=== PATIENT | female | born 1965 | race Caucasian/White ===

== ENCOUNTER → 2019-07-08 08:44 | Outpatient (CLI) | payer BC, SELFPAY ==
--- NOTE | 2019-07-08 08:48 | RAD_ITS ---
STUDY: X-RAY - CERVICAL SPINE REASON FOR EXAM: Female, 53 years old. bilateral arm, shoulder numbness, no trauma TECHNIQUE: 3 view(s) of the cervical spine were obtained. COMPARISON: None FINDINGS: Normal anterior atlantoaxial articulation. Normal odontoid process. Normal cervical lordosis. Normal vertebral bodies and endplates. Normal disc space heights. Normal visualized intervertebral neuroforamina. The soft tissue structures are unremarkable. RAD/Cerv Spine 2 or 3 Views IMPRESSION: Normal x-ray examination of the visualized cervical spine. Electronically Signed: Albert Stein MD at 9:03 EST Tel , Service support ,
== END ==
PROVIDERS: Family Provider Family Medicine; Referring Provider Family Medicine; Visit Provider Family Medicine
DX: R20.0 Anesthesia of skin (principal); R20.2 Paresthesia of skin; G56.02 Carpal tunnel syndrome, left upper limb
CPT/HCPCS: 72040

== ENCOUNTER → 2019-08-31 08:20 | Outpatient (CLI) | payer BC, SELFPAY ==
[2017-09-26 10:23] VITALS: BMI 26.9
[2019-08-31 10:21] LABS: Anion Gap 6 (5-15); BUN 13 mg/dL (7-18); BUN/Creat Ratio 17.5 RATIO (10-20); Calcium,Total 9.3 mg/dL (8.5-10.1); Chloride 109 mmol/L (98-107); Cholesterol 205 mg/dL (200); Creatinine, Serum 0.74 mg/dL (0.55-1.02); EST Glomerular Filtration Rate 87 mL/min (>60); Est Glom Filt Rate - Afr Amer 105 mL/min (>60); Glucose 95 mg/dL (74-106); High Density Lipoprotein 71 mg/dL; Potassium 4.2 mmol/L (3.5-5.1); Sodium Level 142 mmol/L (136-145); Triglycerides 40 mg/dL; Very Low Density Lipoprotein 8 mg/dL (5-40)
== END ==
PROVIDERS: PCP Family Medicine; Referring Provider Family Medicine; Visit Provider Family Medicine
DX: Z13.1 Encounter for screening for diabetes mellitus (principal); Z13.220 Encounter for screening for lipoid disorders
CPT/HCPCS: 36415; 80048; 80061

== ENCOUNTER 2019-09-07 07:00 | Outpatient (RCR) | payer BC, SELFPAY ==
--- NOTE | 2019-07-20 08:30 | HP.OTEVAL_ITS ---
Patient's Visit Information VERONIKA JIN is a 53 year old F, referred to Occupational Therapy by Octavio Coleman MD, with a diagnosis of BUE Numbness and tingling; L carpal tunnel. Date of Evaluation: 07/20/19 Occupational Therapist: Ann Quinn, OTR/L - Subjective Subjective: Arrived and noted that she works for [employer] and does a lot of typing and writing. She noted that she recently bought property with and she noted they were completing more landscape-like activities in April when s he had flare up and that has not resided. She noted symptoms started around middle of April 2019 and have continued to present. She is L hand dominant and symptoms are on left UE. She noted cervical x-ray came back ' normal'. - ADLs Dressing: Bra, Button shirt, Pants, Socks, Shoes, Necklace, Earrings Fasteners: Tie shoes, Buttons, Zippers, Snaps, [place] Eating: Bring food to mouth, Use silverware, Cut food, Butter bread, Drink from glass Bathing: Handle washcloth & soap, Wash hair Toileting: Manage clothing Grooming: mechanical engineering officer, Curling iron, Comb hair, Trim alberto Kitchen: Chop with knife, Peel fruits & vegetables, Open jars, Open bottle caps, Ziplock bags, Lift gallon of milk, Pour from pitcher, Lift saucepan, Take dish out of oven, Load/unload cytotechnologist supervisor Household: Vacuum, Sweep/mop, Laundry Miscellaneous: Unlock front door, Start car, Open medication bottle, Handle money (change), Take things out of wallet, Write, Use power tools, Use computer keyboard, Do crafts, Sew, Jonas/knit/needlework, Drive Comments: Pt. is L hand dominant. SHe noted that she has alpacas and noted increased difficulty with barn chores. - Pain L UE 5 Pain Intensity Range: 3, 9 - Objective Objective/Observation: Some guarding behaviors of L UE consistent with pain; decreased strength observed for L dominant hand. Positive speeds test for bicep tendon involvement but median nerve involvement seems to be consistent with some thoracic outlet as coming from shoulder down and cervical spine x-ray is normal (per patient report) and rotator cuff is intact. She does not have additional symptoms with carpal tunnel tests of Phalen?s or tinels. Sensation loss in hand most present in L MF and thumb which is consistent with median nerve distribution. Concerns: Please send OT order for treatment of LUE symptoms. Thank you! - ROM Shoulder: WFL Elbow: WFL Forearm: WFL Wrist: WFL CMC: WFL MP: WFL IP: WFL Radial Abduction: WFL Palmar Abduction: WFL MP: WFL PIP: WFL DIP: WFL - Strength Shoulder: R 5/5, L 4/5 Elbow: R 5/5, L 4/5 Forearm: WFL Wrist: WFL Emergency Department Physician: flexed R 58, L 30; ext R 62, L 48 Lateral Pinch: R 14, L 10 Tripod Pinch: R 16, L 4 Tip-to-Tip Pinch: R 10, L 4 Strength Comments: Some pain with resistance on L UE. - Sensation Thumb: R 3.84, L 4.74 Index: R 3.61, L 3.84 Middle: R 3.22, L 4.31 Ring: R 3.22, L 3.22 Little: R 2.83, L 2.83 Kinesthesia: Normal - Right, Normal - Left Proprioception: Normal - Right, Normal - Left Sensation Comments: Increased snory deficits on left middle finger and thumb. - Special Tests Phalen's (Carpal Tunnel): no increase in symptoms Tinel's: no increase in symptoms Median Nerve Compression Test: no increase in symptoms Lift Off Test - Subscapular Tear: Negative Drops Sign - IS Test: Negative Empty Can - SS: Negative Neer - Impingement: Negative Mackenzie Tom - Impingement: Negative Biceps Load Test: Negative Speeds Test - Labrum/Biceps: Positive O'Briens - SLAP/A-C: Positive - Quick DASH-Disab of Arm,Shoulder& Hand Quick DASH Score: 60.0000 - Goals Goal:: Veronika to increased L maternal fetal physician in flexed and extended positions by 20-30 lbs to promote increased ROM and strength needed to complete ADL/IADLs including farm- related chores 4/5 trials 80% of the time by d/c. Goal:: Veronika to complete daily pain management provision for LUE to promote increased ability to complete fx activities with LUE 4/5 trials 80% of the time by d/c. Goal:: Veronika to be (I) to complete joint protection and proper body mechanics with lifting tasks to promote increased ROM and strength with decreased pain 4/5 trials 80% fo the time to promote returning to PLOF for all ADL/IADLs by d/c. Goal:: Veronika to be able to complete all ADL/IADls at PLOF with no compensations and good body mechanics to promote ability to return to PLOF 4/5 trials 80% of ther time by d/c. Goal:: Veronika to be (I) to complete daily HEP to promote decreased pain and increased strength to return to PLOF for ADL/IADLs 4/5 trials 80% of the time by d/c. - Rehabilitation General Assessment: Veronika arrived for OT evaluation on this date of 07/20/19. Original symptoms started in April of 2019 which completing manual labor tasks with which also consistent of repetitive overhead movements. She noted symptoms have occured before and they have dissipated after rest but that did not occur this time. She is having increased difficulty with all ADL/IADLs including work, farm-chaired, and general leisure pursuits. Increased pain noted with resistance tasks of L UE. Skilled OT warranted for 2x weekly appointment for the next 4 weeks to address BUE strength, pain management, and ability to return to PLOF by ADL/IADls. Rehabilitation Potential: Good - Anticipated Interventions Anticipated Interventions: A/AAROM/PROM, Strengthening, Edema Control, Massage, Triggerpoint Release, Modalities, Orthoses, Joint Protection/Energy Conservation, Ergonomic Education, Dynamic Sitting Balance, Fine Motor Coord/Hermilo, Cognitive Skills, ADL Training, Caregiver Training, Home Program - Visit Plan Frequency: 2x /Week Duration: 4 Weeks General Plan: Veronika to complete skilled OT to promote general thoracic outlet techniques to promote increased strength, ROM, and pain management while address median nerve glides and general body mechanics to decrease pain with associated movements. TEXT: Thank you for the opportunity to evaluate your patient. For Medicare and Medicare HMO plans, please review the plan of care and approve it. It will need to be FAXED BACK to us at [phone] for Medicare purposes. Please let me know if there are questions or concerns regarding this plan of care. Physician Signature: Date:
--- NOTE | 2019-08-24 08:12 | HP.OTREVAL ---
Octavio Coleman MD, It has been my pleasure to treat VERONIKA JIN over the last 6 visits for BUE Numbness and tingling; L carpal tunnel. Please see the progress note below for an update on the occupational therapy plan of care! Subjective: Arrived and noted had to cancel last appointment due to father being in hospital. Feels abou 80% improvement. Noted R UE is more improved than LUE. Objective/Function: Completed reassessment on this date of 08/24/19 and results as follows: Strength: - resident care manager flexed R 61, L 55. - resident care manager ext R 56, L 45. - lateral R 14, L 10. - tripod R 14, L 6. - pincer R 8, L 6. Completed monofilament testing: R 2nd 2.83 , 3rd 2.83 ,4th 2.83 ,5th 2.83 , thumb 2.83. L 2nd 3.84 , 3rd 3.61 ,4th 3.22 ,5th 3.22, thumb 3.84. Veronika's sensation has progressed significantly from initial evaluation. However, L UE remains with sensory impairment. 9 hole pegboard test: L: 24.28 s. R: 16.15 s. Completed provocative testing: negative for CTS. Plan Frequency: 1x/Week Duration: 2 Weeks Visits in this POC: 8 Plan: continue POC for 1x weekly for the next 2 weeks. She is progressing nicely, but sensory impairment still noted. Will trial blocking exercises for L hand and wrist. Further, ergonomic training and strengthening to be completed. Talked with Veronika that she has made significant improvement over the course of the last 6 visits but if symptoms continue after next 2 weeks she will need to follow up with family doctor and see about the potential of a nerve conduction study. She noted further follow up at the end of August with Dr. Coleman. 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 Goal:: Veronika to complete daily pain management provision for LUE to promote increased ability to complete fx activities with LUE 4/5 trials 80% of the time by d/c. Goal:: Veronika to be (I) to complete joint protection and proper body mechanics with lifting tasks to promote increased ROM and strength with decreased pain 4/5 trials 80% fo the time to promote returning to PLOF for all ADL/IADLs by d/c. Goal:: Veronika to be able to complete all ADL/IADls at PLOF with no compensations and good body mechanics to promote ability to return to PLOF 4/5 trials 80% of ther time by d/c. Goal:: Veronika to be (I) to complete daily HEP to promote decreased pain and increased strength to return to PLOF for ADL/IADLs 4/5 trials 80% of the time by d/c. Anticipated Interventions Anticipated Interventions: A/AAROM/PROM, Strengthening, Edema Control, Massage, Triggerpoint Release, Modalities, Orthoses, Joint Protection/Energy Conservation, Ergonomic Education, Dynamic Sitting Balance, Fine Motor Coord/Hermilo, Cognitive Skills, ADL Training, Caregiver Training, Home Program Please do not hesitate to contact me at [phone] by phone or if you have questions or concerns regarding this new plan of care! Sincerely, Ann Quinn, OTR/L
--- NOTE | 2019-09-07 08:03 | HP.OTDCSUM_ITS ---
HP - OT D/C Summary It has been my pleasure to treat VERONIKA JIN under orders from Octavio Coleman MD, for the diagnosis of BUE Numbness and tingling; L carpal tunnel for a total of 8 visit(s). Please see the following information for a summary of their discharge status. - Overall Improvement % Improvement: 90 - Objective Objective/Function: Completed reassessment on this date of 09/07/19: Strength: technician semiconductor development in flexed R 62, L 40. technician semiconductor development in ext R 58, L 44. lateral pinch R 58, L 44. tripod R 16, L 5. pincer R 10, L 6. Monofilament testing: R 2nd 3.22, 3rd 2.83, 4th 3.22, 5th 2.83, thumb 3.84. L 3.84, 3rd 3.84, 4th 2.83, 5th 2.83, thumb 4.08. Some decreased touch sensation from measurements two weeks ago. She notes increase in symptoms today. 9 hole pegboard test: R: 17.90 s. L: 28.51 s. Increased difficulty noted with manipulating small pieces in pegboard test. 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 Goal:: Veronika to complete daily pain management provision for LUE to promote increased ability to complete fx activities with LUE 4/5 trials 80% of the time by d/c. Goal:: Veronika to be (I) to complete joint protection and proper body mechanics with lifting tasks to promote increased ROM and strength with decreased pain 4/5 trials 80% fo the time to promote returning to PLOF for all ADL/IADLs by d/c. Goal:: Veronika to be able to complete all ADL/IADls at PLOF with no compensations and good body mechanics to promote ability to return to PLOF 4/5 trials 80% of ther time by d/c. Goal:: Veronika to be (I) to complete daily HEP to promote decreased pain and increased strength to return to PLOF for ADL/IADLs 4/5 trials 80% of the time by d/c. - Plan Plan: Veronika will be discharged at this time. She has progressed with therapy but remains symptomatic with increased sensory impairment on left dominant UE. She has completed workplace ergonomic and adaptation training to promote ergonomic and body position at work, UE strengthening program, and working on nerve glides to manage symptoms. She has UB conditioning to promote posture and increased strength. At this time, OT has recommended she return to doctor for further testing as needed to determine cause of ongoing symptoms. - D/C Information If there are questions or concerns regarding this patient's occupational therapy, please fell free to call me at [phone]. Thank you for the referral of this patient. Sincerely, Ann Quinn, OTR/L
== END 2019-09-07 19:00 | disposition home or self-care (01) ==
LOC: OT 07:00
PROVIDERS: Family Provider Family Medicine; PCP Family Medicine; Referring Provider Family Medicine; Visit Provider Family Medicine
DX: G56.02 Carpal tunnel syndrome, left upper limb (principal); R20.0 Anesthesia of skin; R20.2 Paresthesia of skin
CPT/HCPCS: 97110; 97166; 97168; 97530

== ENCOUNTER → 2019-09-10 08:31 | Outpatient (CLI) | payer BC, SELFPAY ==
[2019-09-10 10:25] LABS: Erythrocyte Sedimentation Rate 2 mm/hr (0-30)
[2019-09-10 10:42] LABS: CRP < 2.90 mg/L (0.0-3.0); Rheumatoid Factor < 10.0 IU/mL (<15)
[2019-09-13 18:09] LABS: ANTINUCLEAR ANTIBODIES DIRECT Negative (Negative)
[2019-09-15 16:37] LABS: HLA B27 Negative (.)
== END ==
PROVIDERS: PCP Family Medicine; Referring Provider Family Medicine; Visit Provider Family Medicine
DX: M25.449 Effusion, unspecified hand (principal)
CPT/HCPCS: 36415; 81374; 85652; 86038; 86140; 86431

== ENCOUNTER → 2020-02-23 07:49 | Outpatient (CLI) | payer BC, SELFPAY ==
--- NOTE | 2020-02-23 09:23 | NEURO ---
NCS and/or EMG Patient Report Ordering Doctor: Octavio Coleman DATE OF SERVICE: 02/23/20 Veronika Azar is a 54-year-old female who presents for electrodiagnostic testing of the left upper limb. She reports numbness and tingling, primarily in the second through fourth digits of the left hand. Electrodiagnostic findings: Absent left median motor response at the wrist. Left ulnar motor nerve demonstrates normal distal latency, amplitude and conduction velocity. Absent left median F-wave. Normal left ulnar F wave. Absent median sensory latency at the wrist. Median palmar latency is within normal limits. Normal left ulnar and radial sensory responses. On needle EMG, all muscles tested in the left upper limb, as well as left cervical paraspinals, showed no evidence of denervation with normal motor unit action potentials. Electrodiagnostic impression: This is an abnormal study in the left upper limb. 1. Electrodiagnostic findings demonstrate left-sided median mononeuropathy. This is consistent with an advanced left carpal tunnel syndrome. 2. No electrodiagnostic evidence is noted for cervical radiculopathy. If there are any further questions, please do not hesitate to contact me.
== END ==
PROVIDERS: PCP Family Medicine; Referring Provider Family Medicine; Visit Provider Family Medicine
DX: G56.02 Carpal tunnel syndrome, left upper limb (principal)
CPT/HCPCS: 95886; 95909

== ENCOUNTER 2020-04-06 08:30 | Outpatient (RCR) | payer BC, SELFPAY ==
--- NOTE | 2020-03-29 13:37 | HP.OTEVAL_ITS ---
Patient's Visit Information MARSHAL JIN is a 54 year old F, referred to Occupational Therapy by Dr. Clarence Washington MD, with a diagnosis of right wrist tenosynovitis. Date of Evaluation: 03/27/20 Occupational Therapist: Wanda Walker, KAREN/Yash, CHT - Subjective This 54 year old female was seen for OT eval with dx of tenosynovitis. 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 pt has advanced left median nerve compression and will have sx soon. pt has concenrs with with pain in her right wrist. - ADLs Comments: Pt. is L hand dominant. SHe noted that she has alpacas and noted increased difficulty with barn chores. - Pain right wrist 2 Pain Intensity Range: 6 - ROM Wrist: right 60/55 left 70/65 Opposition: right 10 left 10 ROM Comments: right RD15 UD 25. left RD 15 UD 20 - Strength Cold Storage Worker: right 45# left 30# Lateral Pinch: right 12# left 8# Tripod Pinch: right 10# left 4# - Sensation Thumb: right 3.22 left 3.61 Index: right 3.22 left 3.84 Middle: right 2.83 left 3.22 Ring: right 2.83 left 2.83 Little: right 2.83 left 2.83 - Special Tests WHAT Test: positive - Quick DASH-Disab of Arm,Shoulder& Hand Quick DASH Score: 38.6350 - Goals Goal:: pt will demo right wrist ROM equal to left to increase pts ind. with ADLs and IADLs by d/c Goal:: pt will report pain no greater than 1/10 with use of ADLs and IADLs. Goal:: pt will demo a decrease in monofiliment testing indicating a increase in sensation by d/c Goal:: pt will demo understanding of wrist ergo with use of right UE with ADls and IADLs by d/c - Rehabilitation General Assessment: pt demo with positive 1st dorsal tenosynovitis right wrist. this limits pts ind. with ADls and IADLS at this time. Pt would benefit from skilled OT services 1-2 x week for 3 weeks to decrease pain, ed. on wrist ergo and PRE to return pt to PLOF. Today therapist ed. pt on wrist ergo. pt demo understanding and agree to POC. Rehabilitation Potential: Good - Anticipated Interventions A/AAROM/PROM, Strengthening, Triggerpoint Release, Sensory Retraining, Modalities, Orthoses, Joint Protection/Energy Conservation, Ergonomic Education, Sensory Stimulation, Home Program - Visit Plan Frequency: 1-2x /Week Duration: 4 Weeks General Plan: cont to review wrist ergo to prevent a flexed wrist and grasp while performing ADLs and IADLS. Nerve glides, orthosis use, ice, heat etc to decrease pain. TEXT: Thank you for the opportunity to evaluate your patient. For Medicare and Medicare HMO plans, please review the plan of care and approve it. It will need to be FAXED BACK to us at [phone] for Medicare purposes. Please let me know if there are questions or concerns regarding this plan of care. Physician Signature: Date:
--- NOTE | 2020-06-19 10:49 | HP.OT.NRP ---
MARSHAL JIN was seen in my office for initial evaluation on 03/27/20. The following Plan of Care was established for this patient: Initial Frequency: 1-2x /Week Initial Duration: 4 Weeks Plan: cont with US to right radial styloid-. trigger point- progress to isometric as able or pain free ROM strengthening Anticipated Interventions: A/AAROM/PROM, Strengthening, Triggerpoint Release, Sensory Retraining, Modalities, Orthoses, Joint Protection/Energy Conservation, Ergonomic Education, Sensory Stimulation, Home Program This patient was last seen in our office 04/06/20. Pertinent comments regarding their Occupational therapy will appear below: pt was seen for 4 OT sessions. pt has not scheduled further apts and due to time lapse in services pt d/c at this time. At this point I will be discontinuing this patient from occupational therapy. I would be happy to see this patient again in the future if found appropriate by the physician. Thank you! Wanda Walker, OTR/L, CHT
== END 2020-04-06 19:00 | disposition home or self-care (01) ==
LOC: OT 08:30
PROVIDERS: PCP Family Medicine; Referring Provider Specialist; Visit Provider Specialist
DX: M65.841 Other synovitis and tenosynovitis, right hand (principal); M65.4 Radial styloid tenosynovitis [de Quervain]
CPT/HCPCS: 97035; 97140; 97166; 97530; 97760

== ENCOUNTER → 2020-04-07 08:15 | Outpatient (CLI) | payer BC, SELFPAY ==
[2017-09-26 10:23] VITALS: BMI 26.9
--- NOTE | 2020-04-07 08:18 | EKG12_ITS ---
Test Reason : PRE OP Blood Pressure : / mmHG Vent. Rate : 070 BPM Atrial Rate : 070 BPM P-R Int : 154 ms QRS Dur : 084 ms QT Int : 368 ms P-R-T Axes : 018 033 041 degrees QTc Int : 397 ms Normal sinus rhythm Normal ECG Confirmed by MAKENNA MALDONADO MD ([id number]), desk editor IRENE SANFORD ([id number]) on 04/11/2020 11:27:40 AM Referred By: Clarence Washington Confirmed By:MAKENNA MALDONADO MD
--- NOTE | 2020-04-07 08:31 | RAD_ITS ---
STUDY: X-RAY CHEST REASON FOR EXAM: Female, 54 years old. Pre-op -- h/o asthma TECHNIQUE: PA and lateral views of the chest. COMPARISON: None. FINDINGS: Mild increased markings in the medial aspect of the lingular segment of the left upper lobe. Early infiltrate should be ruled out. There is no demonstrated pleural abnormality. Normal size heart. Normal mediastinum and nemo. Normal visualized pulmonary arteries. Normal visualized aortic arch and descending thoracic aorta. Normal visualized thoracic spine. Normal visualized ribs, clavicles, and shoulders. There is no demonstrated abnormality of the visualized soft tissue structures of the upper abdomen. RAD/Chest PA and Lateral IMPRESSION: Possible early infiltrate in the anterior aspect of the lingular segment of the left upper lobe. Electronically Signed: Gabriel Yu, at 11:39 EDT , Service support ,
[2020-04-07 09:09] LABS: Absolute Lymphocyte Count 2.05 X10^3/uL (0.83-4.51); Absolute Neutrophil Count 2.9 X10^3/uL (2.0-7.7); Basophil# 0.02 X10^3/uL; Basophil% 0.4 % (0-1); Eosinophil# 0.06 X10^3/uL; Eosinophils% 1.1 % (0-5); Hematocrit 43.4 % (37-47); Hemoglobin 13.7 g/dL (12.0-15.0); Lymphocyte # 2.05 X10^3/ul (4.0); Lymphocyte % 35.9 % (19-41); Mean Corp Hgb Conc 31.6 g/dL (32-36); Mean Corpuscular Hgb 29.5 pg (27.0-32.0); Mean Corpuscular Volume 93.3 fL (81-99); Mean Platelet Vol. 9.4 fl (6.2-12.0); Monocyte# 0.68 X10^3/uL; Monocyte% 11.9 % (0-10); NRBC Flagged by Analyzer 0 % (0-5); Neutrophil # 2.89 X10^3/uL (2.7-7.7); Neutrophil % 50.5 % (47-70); Platelet Count 231 K/mm3 (150-450); Red Blood Count 4.65 M/mm3 (4.2-5.4); White Blood Count 5.7 K/mm3 (4.4-11.0)
[2020-04-07 09:33] LABS: Anion Gap 5 (5-15); BUN 18 mg/dL (7-18); BUN/Creat Ratio 22.8 RATIO (10-20); Calcium,Total 9.1 mg/dL (8.5-10.1); Chloride 110 mmol/L (98-107); Creatinine, Serum 0.79 mg/dL (0.55-1.02); EST Glomerular Filtration Rate 80 mL/min (>60); Est Glom Filt Rate - Afr Amer 97 mL/min (>60); Glucose 103 mg/dL (74-106); Potassium 4.3 mmol/L (3.5-5.1); Sodium Level 141 mmol/L (136-145)
== END ==
PROVIDERS: PCP Family Medicine; Referring Provider Specialist; Visit Provider Specialist
DX: Z01.810 Encounter for preprocedural cardiovascular examination (principal); Z01.811 Encounter for preprocedural respiratory examination; Z01.818 Encounter for other preprocedural examination
CPT/HCPCS: 36415; 71046; 80048; 85025; 93005

== ENCOUNTER 2021-07-20 14:17 | Outpatient (CLI) | payer BC, SELFPAY ==
[2021-07-20 18:02] LABS: ALB/GLOB Ratio 1.3 RATIO (0.9-2.4); AST(SGOT) 20 U/L (15-37); Alanine Aminotransfer ALT/SGPT 31 U/L (13-56); Albumin, Serum 4.2 g/dL (3.2-5.0); Alkaline Phosphatase 104 U/L (45-117); Anion Gap 8 (5-15); BUN 15 mg/dL (7-18); BUN/Creat Ratio 17.9 RATIO (10-20); Calcium,Total 9.8 mg/dL (8.5-10.1); Chloride 107 mmol/L (98-107); Cholesterol 218 mg/dL (200); Creatinine, Serum 0.84 mg/dL (0.55-1.02); EST Glomerular Filtration Rate 74 mL/min (>60); Est Glom Filt Rate - Afr Amer 90 mL/min (>60); Globulin 3.3 g/dL (2.2-4.2); Glucose 76 mg/dL (74-106); High Density Lipoprotein 76 mg/dL; Potassium 3.8 mmol/L (3.5-5.1); Protein, Total 7.5 g/dL (6.4-8.2); Sodium Level 141 mmol/L (136-145); Triglycerides 62 mg/dL; Very Low Density Lipoprotein 12 mg/dL (5-40)
== END 2021-07-20 23:59 | disposition short-term general hospital (02) ==
LOC: MFPLAB 14:18
PROVIDERS: PCP Family Medicine; Referring Provider Family Medicine; Visit Provider Family Medicine
DX: E66.3 Overweight (principal)
CPT/HCPCS: 36415; 80053; 80061